=== PATIENT | male | born 1975 | race African-American/Black ===

== ENCOUNTER 2017-08-20 06:04 | Emergency (ER) | payer MEDICAID ==
[~2017-08-20] VITALS: Ht 182.9 cm; Wt 123.0 kg
[2017-08-20 07:57] VITALS: BP 126/82
[2017-08-20] MEDS ORDERED: ACETAMINOPHEN WITH CODEINE 300/30MG TABLET PO ONE (08:00)
== END 2017-08-20 08:04 | disposition home or self-care (01) ==
LOC: ER 06:04
DX: R10.2 Pelvic and perineal pain (principal); F17.200 Nicotine dependence, unspecified, uncomplicated; F12.10 Cannabis abuse, uncomplicated; Z98.890 Other specified postprocedural states
CPT/HCPCS: 99283; Z7610

== ENCOUNTER 2017-08-26 05:36 | Emergency (ER) | payer MEDICAID ==
[~2017-08-26] VITALS: Ht 185.4 cm; Wt 123.0 kg
[2017-08-26 09:05] LABS: EOSINOPHILS % 3.1 % (0.0-5.0); HEMATOCRIT. 43.7 % (42.0-52.0); HEMOGLOBIN. 15.1 g/dL (14.0-18.0); LYMPHOCYTES % 18.3 % (20.0-50.0); MEAN CORPUSCULAR HEMOGLOBIN 30.6 pg (28.0-32.0); MEAN CORPUSCULAR VOLUME 88.6 fL (80.0-94.0); MEAN PLATELET VOLUME 8.2 fl (7.4-10.4); MONOCYTES % 8.6 % (2.0-8.0); PLATELET 304 x1000/uL (130-400); RED BLOOD CELL COUNT 4.93 mill/uL (4.7-6.1); RED CELL DISTRIBUTION WIDTH 14.1 % (11.6-14.6)
[2017-08-26 09:09] LABS: CHLORIDE 108 mEq/L (98-107)
[2017-08-26 09:26] LABS: CLARITY URINE CLEAR (CLEAR); COLOR URINE YELLOW (YELLOW); KETONES URINE NEGATIVE (NEGATIVE); LEUKOCYTE ESTERASE URINE NEGATIVE (NEGATIVE); NITRITE URINE NEGATIVE (NEGATIVE); OCCULT BLOOD URINE NEGATIVE (NEGATIVE); PH URINE 5.5 (4.5-8.0); PROTEIN URINE NEGATIVE (NEGATIVE); SPECIFIC GRAVITY URINE 1.024 (1.005-1.030)
[2017-08-26 09:42] VITALS: BP 138/89
[2017-08-26] MEDS ORDERED: IOHEXOL-300 100 ML BOTTLE ONE (10:35)
== END 2017-08-26 11:49 | disposition home or self-care (01) ==
LOC: ER 05:36
DX: L03.317 Cellulitis of buttock (principal); K57.30 Diverticulosis of large intestine without perforation or abscess without bleeding; F17.210 Nicotine dependence, cigarettes, uncomplicated; F12.90 Cannabis use, unspecified, uncomplicated
CPT/HCPCS: 36415; 74177; 80053; 81003; 83690; 85025; 85610; 99285; Q9967; Z7610